=== PATIENT | male | born 1940 | race Hispanic/Latino ===

== ENCOUNTER 2016-12-22 15:05 | Emergency (ER) | payer OTHER ==
[2016-12-22 15:15] VITALS: BMI 28.7
[2016-12-22 15:16] VITALS: O2SAT 96
--- NOTE | 2016-12-22 16:17 | C.PDOC ---
History Of Present Illness 76 y/o male with Hx of DM presents to ED with complaints of runny nose for x5 days, cough intermittently with occasional white phlegm production. No medication was taken to alleviate symptoms. Patient is currently visiting [place] from [place]. Patient denies fever, chills, CP, abdominal pain, sore throat or Hx of allergies. No other complaints at this time. Time Seen by Provider: 12/22/16 15:28 Chief Complaint (Nursing): Cough, Cold, Congestion History Per: Patient History/Exam Limitations: no limitations Onset/Duration Of Symptoms: Days Current Symptoms Are (Timing): Still Present Associated Symptoms: Nasal Congestion Past Medical History Reviewed: Historical Data, Nursing Documentation, Vital Signs Vital Signs: Last Vital Signs Temp 97.9 F 12/22/16 15:15 Pulse 86 12/22/16 15:15 Resp 20 12/22/16 15:15 BP 118/68 12/22/16 15:15 Pulse Ox 96 12/22/16 17:07 - Medical History PMH: Hypercholesterolemia Surgical History: CABG Family History: States: No Known Family Hx - Social History Hx Alcohol Use: No Hx Substance Use: No - Immunization History Hx Tetanus Toxoid Vaccination: No Hx Influenza Vaccination: No Hx Pneumococcal Vaccination: No Review Of Systems Except As Marked, All Systems Reviewed And Found Negative. Constitutional: Negative for: Fever, Chills ENT: Positive for: Nose Congestion Cardiovascular: Negative for: Chest Pain Respiratory: Positive for: Cough. Negative for: Shortness of Breath Gastrointestinal: Negative for: Nausea, Vomiting, Diarrhea Genitourinary: Negative for: Dysuria Skin: Negative for: Rash Neurological: Negative for: Weakness, Headache, Dizziness Physical Exam - Physical Exam Appears: Non-toxic, No Acute Distress Skin: Normal Color, Warm Head: Atraumatic, Normacephalic Eye(s): bilateral: Normal Inspection, PERRL, EOMI Ear(s): Bilateral: Normal Throat: Normal, No Erythema Cardiovascular: Rhythm Regular, No Murmur Respiratory: Decreased Breath Sounds (Diminished Left lung sound), No Rales, No Rhonchi, No Wheezing Gastrointestinal/Abdominal: Bowel Sounds, Soft, No Tenderness, No Distention, No Guarding, No Rebound Extremity: Normal ROM, Other (Lose to Nail on L foot , no infection) Neurological/Psych: Oriented x3, Normal Speech ED Course And Treatment O2 Sat by Pulse Oximetry: 96 (RA) Pulse Ox Interpretation: Normal Disposition Counseled Patient/Family Regarding: Studies Performed, Diagnosis, Need For Followup, Rx Given - Disposition Disposition: HOME/ ROUTINE Disposition Time: 17:06 Condition: STABLE Prescriptions: Loratadine/Pseudoephedrine [Claritin-D 24 Hour Tablet] 1 each PO DAILY #15 tab.er.24h Instructions: Upper Respiratory Infection (ED), Allergies (ED) Forms: General Discharge Instructions - POA Present On Arrival: None - Clinical Impression Clinical Impression: Influenza-like illness, Seasonal allergies - PA / REALTIME COURT REPORTER / Resident Statement MD/DO has reviewed & agrees with the documentation as recorded. MD/DO has examined the patient and agrees with the treatment plan. - Scribe Statement The provider has reviewed the documentation as recorded by the Mari Blackwell All medical record entries made by the Mari were at my direction and personally dictated by me. I have reviewed the chart and agree that the record accurately reflects my personal performance of the history, physical exam, medical decision making, and the department course for this patient. I have also personally directed, reviewed, and agree with the discharge instructions and disposition.
--- NOTE | 2016-12-22 16:52 | RAD ---
HISTORY: cough COMPARISON: None available. TECHNIQUE: Chest PA and lateral FINDINGS: LUNGS: No focal consolidation. Please note that chest x-ray has limited sensitivity for the detection of pulmonary masses. PLEURA: No significant pleural effusion identified. No definite pneumothorax . CARDIOVASCULAR: Heart size appears top normal. OSSEOUS STRUCTURES: Degenerative changes of the spine. VISUALIZED UPPER ABDOMEN: Mild elevation of the right hemidiaphragm. OTHER FINDINGS: None. IMPRESSION: No focal consolidation, significant pleural effusion, or definite pneumothorax identified.
[2016-12-22 17:08] VITALS: BP 136/71; PULSE 73; RESP 18; TEMP 98.3
== END 2016-12-22 17:20 | disposition home or self-care (01) ==
LOC: C.ER 15:05
DX: J11.1 Influenza due to unidentified influenza virus with other respiratory manifestations (principal); J30.2 Other seasonal allergic rhinitis